=== PATIENT | female | born 1990 | race Caucasian/White ===

== ENCOUNTER 2022-12-16 10:00 | Outpatient (CLI) | payer BC | END 2022-12-16 10:15 | disposition home or self-care (01) | LOC: LAB.N 10:00 | PROVIDERS: ATTEND Nurse Practitioner | DX: N39.0 Urinary tract infection, site not specified (principal) | CPT/HCPCS: 87077; 87086; 87181 ==

== ENCOUNTER 2023-05-28 15:54 | Outpatient (CLI) | payer BC ==
--- NOTE | 2023-05-29 17:08 | Ultrasound Report ---
PROCEDURE: OB Anatomy Scan INDICATIONS: SUPERVISION OF OUTSIDE/PRIOR DATING DATA: Last menstrual period (LMP): 01/07/2023. LMP-based estimated date of delivery (MILES): 10/14/2023. First dating scan (date and location): 03/03/2023. Estimated date of delivery (MILES) from first dating scan: 10/14/2023. The below data below was generated using the working MILES of 10/14/2023 TECHNIQUE: Real-time scanning was performed of the fetus, with image documentation and biometric measurements. Endovaginal scanning: Not performed. COMPARISON: None. FINDINGS: General: A single living intrauterine gestation is present. Presentation: Variable Placenta: Placental position is posterior, without previa. Amniotic fluid index: 18.1 cm, within normal limits for gestational age. heart rate: 164 beats per minute. Maternal cervical canal: 4.4 cm long; normal length is 2.5 cm or more. biometrics: Biparietal diameter: 5.17 cm, 21 weeks, 5 days, 95% Head circumference: 18.95 cm, 21 weeks, 2 days, 86.2% Abdominal circumference: 16.68 cm, 21 weeks, 5 days, 88.4% Femur length: 3.48 cm, 21 weeks, 0 day, 71.4% Estimated gestational age from initial scan: 20 weeks, 1 day Composite gestational age from present scan: 21 weeks, 0 day Estimated weight and percentile: 419 g, 96.6% Measurement variability in biometric dating: +/- 10 days from 12-20 weeks gestation, +/- 2 weeks from 20-30 weeks gestation, +/- 3 weeks at 30 weeks gestation or later. Anatomic survey: Neuro: Ventricles are normal at less than 10 mm. Cisterna magna is normal at 3-11 mm. Cerebellum i s normal in size and morphology. Nuchal skin fold: Normal at less than 6 mm between 14 and 20 weeks gestational age. Face: Nose and lips, facial profile are normal. Spine: No evidence for spina bifida. Heart: 4-chambered heart is present, with normal ventricular outflow tracts. Diaphragm: Diaphragm is intact. Stomach: Left-sided stomach is present. Kidneys: No hydronephrosis. Normal is less than 5 mm in 2nd trimester, less than 7 mm in 3rd trimester. Cord: 3 vessel cord has orthotopic insertion. Bladder: Normal in size. Extremities: All 4 extremities are visualized. IMPRESSION: 1. Single live intrauterine gestation with fetus in variable presentation. heart rate is 164 bp m. Normal amount of amniotic fluid with SEE measures 18.1 cm. 2. Estimated weight is at 96.6%. 3. Normal anatomic survey. Reviewed by: Gerald Maher MD on 05/29/2023 5:07 PM PST Approved by: Gerald Maher MD on 05/29/2023 5:07 PM PST Station ID: [id number]
== END 2023-05-28 15:55 | disposition home or self-care (01) ==
LOC: DI 15:54
PROVIDERS: ATTEND Nurse Practitioner Obstetrics & Gynecology
DX: Z34.02 Encounter for supervision of normal first pregnancy, second trimester (principal); Z36.89 Encounter for other specified antenatal screening

== ENCOUNTER 2024-01-20 10:30 | Outpatient (CLI) | payer BC | END 2024-01-20 10:45 | disposition home or self-care (01) | LOC: LAB.N 10:30 | PROVIDERS: ATTEND Family Medicine | DX: N39.0 Urinary tract infection, site not specified (principal) | CPT/HCPCS: 87086 ==